=== PATIENT | male | born 1990 | race Asian ===

== ENCOUNTER 2017-07-28 13:25 | Emergency (ER) | payer OTHER ==
[2017-07-28 14:26] VITALS: BP 105/73
== END 2017-07-28 14:26 | disposition home or self-care (01) ==
LOC: ED 13:25
DX: T63.441A Toxic effect of venom of bees, accidental (unintentional), initial encounter (principal); Y92.89 Other specified places as the place of occurrence of the external cause

== ENCOUNTER 2017-12-20 12:25 | Emergency (ER) | payer OTHER ==
[~2017-12-20] VITALS: Ht 172.7 cm; Wt 55.3 kg
[2017-12-20 12:29] VITALS: Ht 172.7 cm; Wt 55.3 kg
[2017-12-20 14:03] VITALS: BP 102/57
== END 2017-12-20 14:03 | disposition home or self-care (01) ==
LOC: ED 12:25
DX: R10.13 Epigastric pain (principal); R11.2 Nausea with vomiting, unspecified; R19.7 Diarrhea, unspecified
CPT/HCPCS: J1885; J2550